=== PATIENT | male | born 1965 | race Native Hawaiian/Other Pacific Islander ===

== ENCOUNTER 2018-05-20 01:18 | Emergency (ER) | payer SELFPAY ==
[2018-05-20 01:26] VITALS: RESP 16
--- NOTE | 2018-05-20 02:09 | ED PDOC ---
HPI: Psych/Substance Abuse Time Seen by Provider: 05/20/18 01:30 Chief Complaint (Nursing): Medical Clearance History Per: Patient Additional Complaint(s): Pt. states he was sleeping outside and police came up to him then called the ambulance. Pt. states for the past several months he's had a pruritic rash on the R foot. Used Desitin in the past without relief. Denies fever, pain, trauma, chest pain, SOB. Past Medical History Reviewed: Historical Data, Nursing Documentation, Vital Signs Vital Signs: Last Vital Signs Temp 98.9 F 05/20/18 01:20 Pulse 85 05/20/18 01:20 Resp 16 05/20/18 01:20 BP 165/95 H 05/20/18 01:20 Pulse Ox 98 05/20/18 01:20 - Medical History PMH: No Chronic Diseases - Family History Family History: States: No Known Family Hx - Allergies Allergies/Adverse Reactions: Allergies Allergy/AdvReac Type Severity Reaction Status Date / Time No Known Allergies Allergy Verified 05/20/18 01:27 Review of Systems ROS Statement: Except As Marked, All Systems Reviewed And Found Negative Skin: Positive for: Rash Physical Exam - Physical Exam Appears: Positive for: Well, Non-toxic, No Acute Distress Skin: Positive for: Normal Color, Warm, Rash (annular scaly plaque on dorsal surface of R foot without break in skin integrity or erythema) Eye Exam: Positive for: Normal appearance Pulses-Dorsalis Pedis (L): 2+ Pulses-Dorsalis Pedis (R): 2+ Gastrointestinal/Abdominal: Positive for: Soft. Negative for: Tenderness Extremity: Positive for: Other (no interdigital maceration) Neurologic/Psych: Positive for: Alert, Oriented (x3) - ECG O2 Sat by Pulse Oximetry: 98 - Progress ED Course And Treament: Nystatin cream given in ED. Disposition - Clinical Impression Clinical Impression: Tinea pedis - Patient ED Disposition Is Patient to be Admitted: No - Disposition Referrals: Podiatry Clinic [Outside] Disposition: Routine/Home Disposition Time: 02:09 Condition: STABLE Additional Instructions: Apply Nystatin ointment to rash on feet BID for 10 days. Follow up with podiatry clinic for further evaluation PEEWEE FANG, thank you for letting us take care of you today. Your provider was Naima Christianson MD and you were treated for PSYCH EVAL. The emergency medical care you received today was directed at your acute symptoms. If you were prescribed any medication, please fill it and take as directed. It may take several days for your symptoms to resolve. Return to the Emergency Department if your symptoms worsen, do not improve, or if you have any other problems. Please contact your doctor or call one of the physicians/clinics you have been referred to that are listed on the Patient Visit Information form that is included in your discharge packet. Bring any paperwork you were given at discharge with you along with any medications you are taking to your follow up visit. Our treatment cannot replace ongoing medical care by a primary care provider outside of the emergency department. Thank you for allowing the [facility] team to be part of your care today. If you had an X-Ray or CT scan: A Radiologist will review the ED reading if any change in treatment is needed we will contact you. If you had a blood, urine, or wound culture: It will take several days for the results, if any change in treatment is needed we will contact you. If you had an STI test: It will take 48 hours for the results. Please call after 1 week if you have not heard back. Instructions: Ringworm (DC) Forms: [employer] (Romanian)
[2018-05-20 05:27] VITALS: BP 144/80; PULSE 87; TEMP 99.4
[2018-05-20 23:10] VITALS: O2SAT 98
== END 2018-05-20 05:37 | disposition home or self-care (01) ==
LOC: H.ER 01:18
DX: B35.3 Tinea pedis (principal)